=== PATIENT | female | born 1950 | race Caucasian/White ===

== ENCOUNTER 2017-07-25 14:22 | Outpatient (CLI) | payer MEDICARE | END 2017-07-25 14:23 | disposition home or self-care (01) | LOC: BICMAMMO 14:22 | PROVIDERS: ATTEND Nurse Practitioner Family | DX: Z12.31 Encounter for screening mammogram for malignant neoplasm of breast (principal); R92.1 Mammographic calcification found on diagnostic imaging of breast | CPT/HCPCS: 77063; 77067 ==

== ENCOUNTER 2017-11-25 11:19 | Outpatient (CLI) | payer MEDICARE ==
--- NOTE | 2017-11-25 13:21 | RAD ---
RIGHT KNEE FOUR VIEWS: 11/25/2017 HISTORY: Right knee pain. FINDINGS: Minimal osteophytes are seen involving the medial joint compartment. There is no evidence of a fract ure or dislocation. A small suprapatellar joint effusion is identified. No joint space narrowing is seen. No fracture or dislocation is appreciated. IMPRESSION: Small right knee joint effusion without evidence of an acute osseous abnormality. POS: [facility]
== END 2017-11-25 11:20 | disposition home or self-care (01) ==
LOC: RAD-FRANK 11:19
PROVIDERS: ATTEND Nurse Practitioner Family
DX: M25.561 Pain in right knee (principal); M25.461 Effusion, right knee